=== PATIENT | female | born 1950 | race Caucasian/White ===

== ENCOUNTER → 2019-08-09 10:30 | Outpatient (BNVA) | payer MEDICARE, MEDICAID, SELFPAY | PROVIDERS: Family Provider Internal Medicine; PCP Internal Medicine; Visit Provider Nurse Practitioner Psychiatric/Mental Health | DX: F33.1 Major depressive disorder, recurrent, moderate (principal); F41.1 Generalized anxiety disorder | CPT/HCPCS: 99213 ==

== ENCOUNTER → 2019-12-30 07:23 | Outpatient (BNVA) | payer MEDICARE, MEDICAID, SELFPAY | PROVIDERS: Family Provider Internal Medicine; PCP Internal Medicine; Visit Provider Nurse Practitioner Psychiatric/Mental Health | DX: F33.1 Major depressive disorder, recurrent, moderate (principal); F41.1 Generalized anxiety disorder; Z63.79 Other stressful life events affecting family and household | CPT/HCPCS: 99214 ==

== ENCOUNTER → 2020-03-23 08:19 | Outpatient (BNVA) | payer MEDICARE, MEDICAID, SELFPAY | PROVIDERS: Family Provider Internal Medicine; PCP Internal Medicine; Visit Provider Nurse Practitioner Psychiatric/Mental Health | DX: F33.1 Major depressive disorder, recurrent, moderate (principal); F41.1 Generalized anxiety disorder; Z63.79 Other stressful life events affecting family and household | CPT/HCPCS: 99214 ==

== ENCOUNTER → 2020-05-04 08:27 | Outpatient (BNVA) | payer MEDICARE, MEDICAID, SELFPAY | PROVIDERS: Family Provider Internal Medicine; PCP Internal Medicine; Visit Provider Nurse Practitioner Psychiatric/Mental Health | DX: F33.1 Major depressive disorder, recurrent, moderate (principal); F41.1 Generalized anxiety disorder; Z63.79 Other stressful life events affecting family and household | CPT/HCPCS: 99213 ==

== ENCOUNTER 2020-05-23 13:03 | Outpatient (CLI) | payer MEDICARE, MEDICAID, SELFPAY ==
--- NOTE | 2020-05-23 13:09 | MM_ITS ---
WS: [id number] BILATERAL SCREENING DIGITAL MAMMOGRAM WITH CAD HISTORY: SCREENING COMPARISON: 01/24/2017. Bilateral CC and MLO views submitted. Computer aided detection analyzed. Breast composition: There are scattered areas of fibroglandular density. No suspicious masses, microc alcifications or architectural distortion. Scattered nodules and calcifications are stable since 01/24. MM/[place] [id number] IMPRESSION: BI-RADS: 2-Benign FOLLOW UP: 1 Year Follow-up
== END 2020-05-23 13:04 | disposition home or self-care (01) ==
LOC: RADSHAW 13:07
PROVIDERS: Family Provider Internal Medicine; PCP Internal Medicine; Visit Provider Nurse Practitioner Family
DX: Z12.31 Encounter for screening mammogram for malignant neoplasm of breast (principal)
CPT/HCPCS: 77067

== ENCOUNTER → 2020-06-19 10:53 | Outpatient (BNVA) | payer OTHER, SELFPAY | PROVIDERS: Family Provider Internal Medicine; PCP Internal Medicine; Visit Provider Nurse Practitioner Psychiatric/Mental Health | DX: F33.1 Major depressive disorder, recurrent, moderate (principal); Z79.899 Other long term (current) drug therapy | CPT/HCPCS: 80061; 83036 ==

== ENCOUNTER → 2020-06-27 09:44 | Outpatient (BNVA) | payer MEDICARE, MEDICAID, SELFPAY | PROVIDERS: Family Provider Internal Medicine; PCP Internal Medicine; Visit Provider Nurse Practitioner Psychiatric/Mental Health | DX: F33.1 Major depressive disorder, recurrent, moderate (principal); F41.1 Generalized anxiety disorder; Z63.79 Other stressful life events affecting family and household | CPT/HCPCS: 99214 ==

== ENCOUNTER → 2020-08-22 10:58 | Outpatient (BNVA) | payer OTHER, SELFPAY ==
[2020-06-30 15:52] VITALS: BP 152/95; BMI 42.8
== END ==
PROVIDERS: Family Provider Internal Medicine; PCP Internal Medicine; Visit Provider Nurse Practitioner Psychiatric/Mental Health
DX: F33.1 Major depressive disorder, recurrent, moderate (principal); F41.1 Generalized anxiety disorder; Z63.79 Other stressful life events affecting family and household
CPT/HCPCS: 99214

== ENCOUNTER → 2020-11-16 09:00 | Outpatient (BNVA) | payer MEDICARE, MEDICAID, OTHER, SELFPAY ==
[2020-06-30 15:52] VITALS: BP 152/95; BMI 42.8
== END ==
PROVIDERS: Family Provider Internal Medicine; PCP Internal Medicine; Visit Provider Nurse Practitioner Psychiatric/Mental Health
DX: F33.1 Major depressive disorder, recurrent, moderate (principal); F41.1 Generalized anxiety disorder; Z63.79 Other stressful life events affecting family and household
CPT/HCPCS: 99214

== ENCOUNTER → 2020-12-28 07:15 | Outpatient (BNVA) | payer MEDICARE, MEDICAID, SELFPAY ==
[2020-06-30 15:52] VITALS: BP 152/95; BMI 42.8
== END ==
PROVIDERS: Family Provider Internal Medicine; PCP Internal Medicine; Visit Provider Nurse Practitioner Psychiatric/Mental Health
DX: F33.1 Major depressive disorder, recurrent, moderate (principal); F41.1 Generalized anxiety disorder; Z63.79 Other stressful life events affecting family and household
CPT/HCPCS: 99214

== ENCOUNTER → 2021-02-22 07:34 | Outpatient (BNVA) | payer MEDICARE, MEDICAID, OTHER, SELFPAY ==
[2020-06-30 15:52] VITALS: BP 152/95; BMI 42.8
== END ==
PROVIDERS: Family Provider Internal Medicine; PCP Internal Medicine; Visit Provider Nurse Practitioner Psychiatric/Mental Health
DX: F33.1 Major depressive disorder, recurrent, moderate (principal); Z63.79 Other stressful life events affecting family and household; F41.1 Generalized anxiety disorder
CPT/HCPCS: 99214

== ENCOUNTER 2021-02-22 14:18 | Outpatient (CLI) | payer MEDICARE, MEDICAID, SELFPAY ==
[2020-06-30 15:52] VITALS: BP 152/95; BMI 42.8
--- NOTE | 2021-02-22 | US_ITS ---
WS: [id number] RENAL ULTRASOUND HISTORY: GROSS HEMATURIA COMPARISON: 05/10/2014 TECHNIQUE: 2-D and color Doppler imaging of the kidney submitted. Right kidney: 13.3 cm x 5.8 cm x 5.3 cm. Normal echogenicity with no hydronephrosis or mass. Minimal splitting of the renal pelvis. No signifi cant dilatation. Left kidney: 11.9 cm x 6.1 cm x 4.9 cm. Normal echogenicity with no hydronephrosis or mass. Aorta: Normal. Urinary Bladder: Normal distention. US/US renal BI* [id number] IMPRESSION: Normal renal ultrasound.
== END 2021-02-22 14:19 | disposition home or self-care (01) ==
LOC: RADOUTREAD 14:22
PROVIDERS: PCP Internal Medicine; Visit Provider Family Medicine
DX: R31.0 Gross hematuria (principal)

== ENCOUNTER → 2021-04-04 08:09 | Outpatient (BNVA) | payer MEDICARE, MEDICAID, OTHER, SELFPAY ==
[2020-06-30 15:52] VITALS: BP 152/95; BMI 42.8
== END ==
PROVIDERS: Family Provider Internal Medicine; PCP Internal Medicine; Visit Provider Nurse Practitioner Psychiatric/Mental Health
DX: F33.1 Major depressive disorder, recurrent, moderate (principal); F41.1 Generalized anxiety disorder; Z63.79 Other stressful life events affecting family and household
CPT/HCPCS: 99214

== ENCOUNTER → 2021-06-18 10:00 | Outpatient (BNVA) | payer MEDICARE, MEDICAID, SELFPAY ==
[2020-06-30 15:52] VITALS: BP 152/95; BMI 42.8
== END ==
PROVIDERS: Family Provider Internal Medicine; PCP Internal Medicine; Visit Provider Nurse Practitioner Psychiatric/Mental Health
DX: F33.1 Major depressive disorder, recurrent, moderate (principal); F41.1 Generalized anxiety disorder; Z63.79 Other stressful life events affecting family and household
CPT/HCPCS: 99214

== ENCOUNTER → 2021-07-30 09:00 | Outpatient (BNVA) | payer MEDICARE, MEDICAID, SELFPAY ==
[2020-06-30 15:52] VITALS: BP 152/95; BMI 42.8
== END ==
PROVIDERS: Family Provider Internal Medicine; PCP Internal Medicine; Visit Provider Nurse Practitioner Psychiatric/Mental Health
DX: F33.1 Major depressive disorder, recurrent, moderate (principal); F41.1 Generalized anxiety disorder; Z63.79 Other stressful life events affecting family and household
CPT/HCPCS: 99214

== ENCOUNTER → 2021-09-24 08:31 | Outpatient (BNVA) | payer MEDICARE, MEDICAID, SELFPAY ==
[2020-06-30 15:52] VITALS: BP 152/95; BMI 42.8
== END ==
PROVIDERS: Family Provider Internal Medicine; PCP Internal Medicine; Visit Provider Nurse Practitioner Psychiatric/Mental Health
DX: F41.1 Generalized anxiety disorder (principal); Z63.79 Other stressful life events affecting family and household; F33.1 Major depressive disorder, recurrent, moderate
CPT/HCPCS: 99214

== ENCOUNTER 2021-10-11 12:28 | Outpatient (CLI) | payer MEDICARE, MEDICAID, SELFPAY ==
[2020-06-30 15:52] VITALS: BP 152/95; BMI 42.8
--- NOTE | 2021-10-11 13:15 | MM_ITS ---
WS: [id number] BILATERAL 3D TOMOSYNTHESIS DIGITAL SCREENING MAMMOGRAPHY WITH CAD CLINICAL INFORMATION: SCREENING HISTORY: Screening mammogram. No current complaints. COMPARISON: May 23, 2020 TECHNIQUE: Bilateral CC and MLO views. FINDINGS: Scattered fibroglandular densities bilaterally. Stable punctate and lucent centered calcifications. E nlarged lymph nodes LEFT axilla appears new from previous. Recommend further evaluation with ultrasou nd. Breast parenchyma is unremarkable and unchanged. MM/[place] [id number] IMPRESSION: Recommend ultrasound LEFT axilla for enlarged lymph nodes. BI-RADS: 0-Incomplete: Need additional imaging evaluation FOLLOW UP: Need Additional Imaging
--- NOTE | 2021-10-11 13:36 | XR_ITS ---
WS: [id number] SCREENING DEXA SCAN [employer] CLINICAL INFORMATION: POSTMENOPAUSAL COMPARISON: 2014 FINDINGS: The L1-L4 bone mineral density measures 1.049 g/cm2. This corresponds to a T score score of -1.1 and Z score of -0.6. Left femoral neck bone mineral density measures 0.763 g/cm2. This corresponds to a T score of -1.9 an d Z score of -1.2. Right femoral neck bone mineral density measures 0.876 g/cm2. This corresponds to a T score -1.0of an d Z score of -0.3. Mean femoral neck bone mineral density measures 0.820 g/cm2. This corresponds to a T score of -1.5 an d Z score of -0.7. XR/XR DEXA axial skeleton* [id number] IMPRESSION: Osteopenia in the femoral necks and lumbar spine. Patient's FRAX calculated 10 year probability for major osteoporotic fracture i s 36.8 % and osteoporotic hip fracture is 11.4%.
== END 2021-10-11 12:29 | disposition home or self-care (01) ==
PROVIDERS: PCP Internal Medicine; Visit Provider Nurse Practitioner
DX: Z12.31 Encounter for screening mammogram for malignant neoplasm of breast (principal); N95.9 Unspecified menopausal and perimenopausal disorder
CPT/HCPCS: 77063; 77067; 77080

== ENCOUNTER 2021-10-31 14:54 | Outpatient (CLI) | payer MEDICARE, MEDICAID, SELFPAY ==
[2020-06-30 15:52] VITALS: BP 152/95; BMI 42.8
--- NOTE | 2021-10-31 15:05 | US_ITS ---
WS: [id number] INDICATION: Enlarged lymph node LEFT breast TECHNIQUE: Ultrasound LEFT axilla area of concern FINDINGS: Ultrasound LEFT axilla. Several slightly enlarged lymph nodes in the LEFT axilla some with replacement of the normal fatty hilum. These are nonspecific and recommend ultrasound-guided biopsy o f the most suspicious lymph node. In particular, prominent lymph node measuring 1.0 x 0.7 x 1.0 cm with replacement of the normal fatt y hilum and mild cortical thickening. Additional prominent lymph node measuring 1.7 x 0.7 x 0.8 cm wi th normal preserved central fatty hilum. Additional hypoechoic lymph node with replacement of the nor mal fatty hilum measuring 1.0 x 0.6 x 1.1 cm US/US soft tissue/extremity [id number] IMPRESSION: Recommend ultrasound-guided biopsy of the most suspicious lymph nod e LEFT axilla.
== END 2021-10-31 14:55 | disposition home or self-care (01) ==
LOC: RAD 14:58
PROVIDERS: PCP Internal Medicine; Visit Provider Internal Medicine
DX: R59.9 Enlarged lymph nodes, unspecified (principal)
CPT/HCPCS: 76882

== ENCOUNTER → 2021-12-12 09:00 | Outpatient (BNVA) | payer MEDICARE, MEDICAID, SELFPAY ==
[2020-06-30 15:52] VITALS: BP 152/95; BMI 42.8
== END ==
PROVIDERS: PCP Internal Medicine; Referring Provider Internal Medicine; Visit Provider Podiatrist Foot & Ankle Surgery
DX: L84 Corns and callosities (principal); M20.42 Other hammer toe(s) (acquired), left foot; M21.621 Bunionette of right foot; M21.622 Bunionette of left foot; E11.42 Type 2 diabetes mellitus with diabetic polyneuropathy; Z79.84 Long term (current) use of oral hypoglycemic drugs
CPT/HCPCS: 11056; 99204

== ENCOUNTER 2022-03-05 12:08 | Outpatient (CLI) | payer MEDICAID, SELFPAY ==
[2020-06-30 15:52] VITALS: BP 152/95; BMI 42.8
--- NOTE | 2022-03-05 12:21 | US_ITS ---
WS: [id number] Ultrasound GUIDED BIOPSY LEFT AXILLARY LYMPH NODE. HISTORY: LOCALIZED ENLARGED LYMPH NODES Procedure, risks, and complications are explained to the patient. Consent was obtained. Skin is clean sed with ChloraPrep and anesthetized with 1% buffered lidocaine. There is a single lymph node in the LEFT axilla which is very minimally benign. Normal reniform shape . Biopsy is performed with 20-gauge achieve needle. Multiple core biopsies are performed and placed wit hin saline. No complications. US/US biopsy lymph node breast/ax IMPRESSION: 1. Uncomplicated LEFT axillary lymph node biopsy. 2. Histopathology indicated benign reactive lymphoid tissue. Specimen was also sent for flow cytometry. There was low cell count but no abnormality was ident ified. Please refer to the entire cytometry report for further details.
[2022-03-08 13:17] LABS: Leukemia Profile (BBPL) See Report; Lymphoma Profile (BBPL) See Report
== END 2022-03-05 12:09 | disposition home or self-care (01) ==
LOC: RAD 12:08
PROVIDERS: PCP Internal Medicine; Visit Provider Internal Medicine
DX: R59.0 Localized enlarged lymph nodes (principal)
CPT/HCPCS: 38505; 76942; 88184; 88185; 88305

== ENCOUNTER → 2022-03-13 08:03 | Outpatient (BNVA) | payer MEDICAID, SELFPAY ==
[2020-06-30 15:52] VITALS: BP 152/95; BMI 42.8
== END ==
PROVIDERS: PCP Internal Medicine; Visit Provider Podiatrist Foot & Ankle Surgery
DX: E11.8 Type 2 diabetes mellitus with unspecified complications (principal); L84 Corns and callosities; M20.42 Other hammer toe(s) (acquired), left foot; M21.621 Bunionette of right foot; M21.622 Bunionette of left foot; E11.42 Type 2 diabetes mellitus with diabetic polyneuropathy; L60.3 Nail dystrophy; Z79.84 Long term (current) use of oral hypoglycemic drugs
CPT/HCPCS: 11056; 11721

== ENCOUNTER → 2022-06-11 08:40 | Outpatient (BNVA) | payer MEDICARE, MEDICAID, SELFPAY ==
[2020-06-30 15:52] VITALS: BP 152/95; BMI 42.8
== END ==
PROVIDERS: PCP Internal Medicine; Visit Provider Podiatrist Foot & Ankle Surgery
DX: E11.8 Type 2 diabetes mellitus with unspecified complications (principal); E11.42 Type 2 diabetes mellitus with diabetic polyneuropathy; L84 Corns and callosities; M20.42 Other hammer toe(s) (acquired), left foot; M21.621 Bunionette of right foot; M21.622 Bunionette of left foot; L60.3 Nail dystrophy; Z79.84 Long term (current) use of oral hypoglycemic drugs
CPT/HCPCS: 11056; 11721

== ENCOUNTER → 2022-08-01 09:17 | Outpatient (BNVA) | payer OTHER, SELFPAY ==
[2020-06-30 15:52] VITALS: BP 152/95; BMI 42.8
== END ==
PROVIDERS: PCP Internal Medicine; Visit Provider Nurse Practitioner Psychiatric/Mental Health
DX: Z79.899 Other long term (current) drug therapy (principal); F41.1 Generalized anxiety disorder
CPT/HCPCS: 80053; 80061; 83036

== ENCOUNTER → 2022-09-10 08:07 | Outpatient (BNVA) | payer MEDICARE, MEDICAID, SELFPAY ==
[2022-08-12 15:23] VITALS: BP 153/72; BMI 43.2
== END ==
PROVIDERS: PCP Internal Medicine; Visit Provider Podiatrist Foot & Ankle Surgery
DX: E11.42 Type 2 diabetes mellitus with diabetic polyneuropathy (principal); L60.3 Nail dystrophy; L84 Corns and callosities; M20.42 Other hammer toe(s) (acquired), left foot; M21.621 Bunionette of right foot; M21.622 Bunionette of left foot; Z79.84 Long term (current) use of oral hypoglycemic drugs
CPT/HCPCS: 11056; 11721

== ENCOUNTER → 2022-12-17 08:16 | Outpatient (BNVA) | payer MEDICARE, MEDICAID, SELFPAY ==
[2022-08-12 15:23] VITALS: BP 153/72; BMI 43.2
== END ==
PROVIDERS: PCP Internal Medicine; Visit Provider Podiatrist Foot & Ankle Surgery
DX: E11.42 Type 2 diabetes mellitus with diabetic polyneuropathy (principal); L84 Corns and callosities; L60.3 Nail dystrophy; M20.42 Other hammer toe(s) (acquired), left foot; M21.621 Bunionette of right foot; M21.622 Bunionette of left foot; Z79.84 Long term (current) use of oral hypoglycemic drugs
CPT/HCPCS: 11056; 11721

== ENCOUNTER → 2023-03-18 08:38 | Outpatient (BNVA) | payer MEDICAID, SELFPAY ==
[2022-08-12 15:23] VITALS: BP 153/72; BMI 43.2
== END ==
PROVIDERS: PCP Internal Medicine; Visit Provider Podiatrist Foot & Ankle Surgery
DX: L60.3 Nail dystrophy (principal); M20.42 Other hammer toe(s) (acquired), left foot; M21.621 Bunionette of right foot; M21.622 Bunionette of left foot; E11.42 Type 2 diabetes mellitus with diabetic polyneuropathy; Z79.84 Long term (current) use of oral hypoglycemic drugs
CPT/HCPCS: 11721

== ENCOUNTER → 2023-07-15 08:25 | Outpatient (BNVA) | payer MEDICARE, MEDICAID, SELFPAY ==
[2023-04-03 08:05] VITALS: BP 153/72; BMI 43.2
== END ==
PROVIDERS: PCP Internal Medicine; Visit Provider Podiatrist Foot & Ankle Surgery
DX: E11.8 Type 2 diabetes mellitus with unspecified complications; L60.3 Nail dystrophy; M20.42 Other hammer toe(s) (acquired), left foot; M21.621 Bunionette of right foot; M21.622 Bunionette of left foot; E11.42 Type 2 diabetes mellitus with diabetic polyneuropathy; M77.41 Metatarsalgia, right foot; Z79.84 Long term (current) use of oral hypoglycemic drugs
CPT/HCPCS: 11721; 73630; 99213

== ENCOUNTER → 2023-10-14 08:50 | Outpatient (BNVA) | payer OTHER, MEDICAID, SELFPAY ==
[2023-04-03 08:05] VITALS: BP 153/72; BMI 43.2
== END ==
PROVIDERS: PCP Internal Medicine; Visit Provider Podiatrist Foot & Ankle Surgery
DX: R09.89 Other specified symptoms and signs involving the circulatory and respiratory systems (principal); E11.42 Type 2 diabetes mellitus with diabetic polyneuropathy; Z79.84 Long term (current) use of oral hypoglycemic drugs
CPT/HCPCS: 99213

== ENCOUNTER 2023-10-21 09:09 | Outpatient (CLI) | payer OTHER, MEDICAID, SELFPAY ==
[2023-04-03 08:05] VITALS: BP 153/72; BMI 43.2
--- NOTE | 2023-10-21 09:45 | USCV_ITS ---
Sara Casillas Age: 73 Gender: F : 1950 Exam Date: 10/21/2023 09:09 Ordering Phys: Mannie Stokes DPM Technologist: Exam Location: [facility] [place]_ Indication: pvd RIGHT LEFT Brachial 116.00 mmHg Brachial 124.00 mmHg Pressure (mmHg) Waveform Pressure (mmHg) Waveform 1.10 Ankle/Brachial Index 1.10 FINDINGS Resting ROMULO 1.1 bilaterally CONCLUSIONS 1. Normal resting ABIs bilaterally 2. No significant arterial obstruction, based on the above findings. Dr Yuliya Duong MD [facility] (Electronically Signed) Final Date: 22 Oct 2023 23:54 S
== END 2023-10-21 09:10 | disposition home or self-care (01) ==
LOC: RAD 09:10
PROVIDERS: PCP Internal Medicine; Visit Provider Podiatrist Foot & Ankle Surgery
DX: R09.89 Other specified symptoms and signs involving the circulatory and respiratory systems (principal)
CPT/HCPCS: 93922

== ENCOUNTER → 2023-11-12 08:36 | Outpatient (BNVA) | payer OTHER, MEDICAID, SELFPAY ==
[2023-04-03 08:05] VITALS: BP 153/72; BMI 43.2
== END ==
PROVIDERS: PCP Internal Medicine; Visit Provider Podiatrist Foot & Ankle Surgery
DX: E11.8 Type 2 diabetes mellitus with unspecified complications (principal); E11.42 Type 2 diabetes mellitus with diabetic polyneuropathy; R20.9 Unspecified disturbances of skin sensation; Z79.84 Long term (current) use of oral hypoglycemic drugs
CPT/HCPCS: 99213

== ENCOUNTER → 2024-01-14 09:15 | Outpatient (BNVA) | payer OTHER, MEDICAID, SELFPAY ==
[2023-04-03 08:05] VITALS: BP 153/72; BMI 43.2
== END ==
PROVIDERS: PCP Internal Medicine; Visit Provider Podiatrist Foot & Ankle Surgery
DX: E11.42 Type 2 diabetes mellitus with diabetic polyneuropathy (principal); R20.9 Unspecified disturbances of skin sensation; Q82.8 Other specified congenital malformations of skin; L60.3 Nail dystrophy; Z79.84 Long term (current) use of oral hypoglycemic drugs
CPT/HCPCS: 11721; 17110

== ENCOUNTER 2024-02-12 08:46 | Outpatient (CLI) | payer OTHER, MEDICAID, SELFPAY ==
[2023-04-03 08:05] VITALS: BP 153/72; BMI 43.2
--- NOTE | 2024-02-12 08:57 | XR_ITS ---
WS: [id number] XR hip RT 2-3V wo/w pel* [id number] REASON FOR EXAM: PAIN IN RIGHT HIP FINDINGS: No fracture or focal bone lesion. Moderate narrowing of the hip joint space with moderate subchondral sclerosis and osteophytosis of th e acetabulum. There is mild osteophytosis of the femoral head. No soft tissue abnormality. XR/XR hip RT 2-3V wo/w pel* [id number] IMPRESSION: Moderate osteoarthritis of the right hip.
== END 2024-02-12 08:47 | disposition home or self-care (01) ==
LOC: RAD 08:51
PROVIDERS: PCP Internal Medicine; Visit Provider Anesthesiology Pain Medicine
DX: M16.11 Unilateral primary osteoarthritis, right hip (principal); M25.751 Osteophyte, right hip
CPT/HCPCS: 73502

== ENCOUNTER → 2024-05-17 10:30 | Outpatient (BNVA) | payer OTHER, SELFPAY ==
[2024-02-27 13:21] VITALS: BP 106/51; BMI 44.3
== END ==
PROVIDERS: PCP Internal Medicine; Visit Provider Podiatrist Foot & Ankle Surgery
DX: E11.8 Type 2 diabetes mellitus with unspecified complications (principal); R20.9 Unspecified disturbances of skin sensation; L60.3 Nail dystrophy; E11.42 Type 2 diabetes mellitus with diabetic polyneuropathy; Q82.8 Other specified congenital malformations of skin; Z79.84 Long term (current) use of oral hypoglycemic drugs
CPT/HCPCS: 11721; 17110

== ENCOUNTER → 2024-08-16 10:59 | Outpatient (BNVA) | payer OTHER, MEDICAID, SELFPAY ==
[2024-02-27 13:21] VITALS: BP 106/51; BMI 44.3
== END ==
PROVIDERS: PCP Internal Medicine; Visit Provider Podiatrist Foot & Ankle Surgery
DX: E11.8 Type 2 diabetes mellitus with unspecified complications (principal); L60.3 Nail dystrophy; E11.42 Type 2 diabetes mellitus with diabetic polyneuropathy; Q82.8 Other specified congenital malformations of skin; Z79.84 Long term (current) use of oral hypoglycemic drugs
CPT/HCPCS: 11721; 17110

== ENCOUNTER → 2024-11-08 11:38 | Outpatient (BNVA) | payer OTHER, MEDICAID, SELFPAY ==
[2024-02-27 13:21] VITALS: BP 106/51; BMI 44.3
== END ==
PROVIDERS: PCP Family Medicine; Visit Provider Podiatrist Foot & Ankle Surgery
DX: E11.8 Type 2 diabetes mellitus with unspecified complications (principal); L60.3 Nail dystrophy; Q82.8 Other specified congenital malformations of skin; E11.42 Type 2 diabetes mellitus with diabetic polyneuropathy; Z79.84 Long term (current) use of oral hypoglycemic drugs
CPT/HCPCS: 11721; 17110

== ENCOUNTER 2024-11-26 12:56 | Outpatient (CLI) | payer OTHER, MEDICAID, SELFPAY ==
[2024-02-27 13:21] VITALS: BP 106/51; BMI 44.3
--- NOTE | 2024-11-26 | MM_ITS ---
WS: [id number] BILATERAL 3D TOMOSYNTHESIS DIGITAL SCREENING MAMMOGRAPHY WITH CAD CLINICAL INFORMATION: ANNUAL SCREENING HISTORY: Screening mammogram. No current complaints. COMPARISON: 2021 TECHNIQUE: Bilateral CC and MLO views. FINDINGS: Scattered fibroglandular densities bilaterally. No suspicious focal mass, asymmetry, calcifications, or architectural distortion. No evidence of malignancy. Punctate and lucent centered calcifications. MM/MM scr BI tomosynthesis [id number] IMPRESSION: DENSITY: There are scattered areas of fibroglandular density. BI-RADS: 2 - Benign. FOLLOW UP: 1 Year Follow-up Recommend return to annual screening mammography.
== END 2024-11-26 12:57 | disposition home or self-care (01) ==
LOC: RAD 12:58
PROVIDERS: PCP Family Medicine; Visit Provider Family Medicine
DX: Z12.31 Encounter for screening mammogram for malignant neoplasm of breast (principal); R92.323 Mammographic fibroglandular density, bilateral breasts; R92.1 Mammographic calcification found on diagnostic imaging of breast
CPT/HCPCS: 77063; 77067

== ENCOUNTER → 2025-02-08 11:15 | Outpatient (BNVA) | payer OTHER, MEDICAID, SELFPAY ==
[2024-02-27 13:21] VITALS: BP 106/51; BMI 44.3
== END ==
PROVIDERS: PCP Family Medicine; Visit Provider Podiatrist Foot & Ankle Surgery
DX: E11.42 Type 2 diabetes mellitus with diabetic polyneuropathy (principal); L60.3 Nail dystrophy; Q82.8 Other specified congenital malformations of skin; E11.8 Type 2 diabetes mellitus with unspecified complications; Z79.84 Long term (current) use of oral hypoglycemic drugs
CPT/HCPCS: 11721; 17110

== ENCOUNTER → 2025-05-16 10:57 | Outpatient (BNVA) | payer OTHER, MEDICAID, SELFPAY ==
[2024-02-27 13:21] VITALS: BP 106/51; BMI 44.3
== END ==
PROVIDERS: PCP Family Medicine; Visit Provider Podiatrist Foot & Ankle Surgery
DX: E11.42 Type 2 diabetes mellitus with diabetic polyneuropathy (principal); L60.3 Nail dystrophy; Q82.8 Other specified congenital malformations of skin; E11.8 Type 2 diabetes mellitus with unspecified complications; Z79.84 Long term (current) use of oral hypoglycemic drugs; Z79.85 Long-term (current) use of injectable non-insulin antidiabetic drugs
CPT/HCPCS: 11721; 17110